=== PATIENT | female | born 1930 | race Two or more races ===

== ENCOUNTER 2016-12-27 23:04 | Inpatient (IN) | payer MEDICARE, MEDICAID ==
[~2016-12-27] VITALS: Ht 172.7 cm; Wt 94.8 kg
--- NOTE | 2016-12-27 23:10 | NUR ---
BB RA FROM HOME; NAUSEA/ VOMIT/ DIRRHEA X 1 DAY. PT AO MONTSERRAT[place] SPEAKING, SON AT BEDSIDE TO TRANSLATE. RR EVEN AND UNLABORED. NO SOB NOTED. NAD NOTED. NO NVD AT THIS TIME. PT GOWNED AND PLACED ON MONITOR.
[2016-12-27] MEDS ORDERED: ONDANSETRON HCL/PF 4 MG/2 ML VIAL IVP ONE (23:30)
[2016-12-27] MEDS ORDERED: ASPIRIN 81 MG TAB.CHEW PO ONE (23:30)
[2016-12-27] MEDS ORDERED: ONDANSETRON HCL/PF 4 MG/2 ML VIAL ONE (23:36)
[2016-12-27 23:41] LABS: BASOPHILS % (AUTO) 0.4 % (0.0-2.0); EOSINOPHILS # (AUTO) 0.1 /CMM (0.0-0.7); EOSINOPHILS % (AUTO) 0.7 % (0.0-6.0); HEMATOCRIT 39 % (33-45); HEMOGLOBIN 12.9 g/dL (11.5-14.8); LYMPHOCYTES # (AUTO) 0.9 /CMM (0.8-4.8); LYMPHOCYTES % (AUTO) 9.8 % (20.0-44.0); MEAN CORPUSCULAR HEMOGLOBIN 29 PG (26.0-33.0); MEAN CORPUSCULAR HGB CONC 33 g/dl (31.0-36.0); MEAN CORPUSCULAR VOLUME 89 fL (82-100); MONOCYTES # (AUTO) 0.3 /CMM (0.1-1.30); MONOCYTES % (AUTO) 3.1 % (2.0-12.0); NEUTROPHILS # (AUTO) 8.1 /CMM (1.8-8.9); PLATELET COUNT (AUTO) 328 /CMM (150-450); RDW COEFFICIENT OF VARIATION 14.1 (11.5-15.0); RED BLOOD CELL COUNT(AUTO) 4.44 MIL/uL (4.0-5.2); WHITE BLOOD COUNT (AUTO) 9.4 K/uL (4.3-11.0)
--- NOTE | 2016-12-27 23:43 | NUR ---
URINE COLLECTED. CALLED LAB FOR TRAY DRIER.
[2016-12-27] MEDS ORDERED: ASPIRIN 81 MG TAB.CHEW ONE (23:53)
[2016-12-27 23:54] LABS: CALCIUM, SERUM 9.5 mg/dL (8.5-10.1); CARBON DIOXIDE 30 mmol/L (21-32); CHLORIDE 94 mmol/L (98-107); CREATININE 0.7 mg/dL (0.6-1.3); GLUCOSE 237 mg/dL (74-106); POTASSIUM 4.2 mmol/L (3.5-5.1); SODIUM SERUM 131 mmol/L (136-145); UREA NITROGEN, BLOOD 14 mg/dL (7-18)
--- NOTE | 2016-12-27 23:56 | NUR ---
PT TO RADIOLOGY FOR CT
[2016-12-28] VITALS (7 sets, daily range): BP systolic 132–152; BP diastolic 76–86
[2016-12-28] LABS: ALANINE AMINOTRANSFERASE 20 U/L (12-78); ALBUMIN 4.1 g/dL (3.4-5.0); ALKALINE PHOSPHATASE 58 U/L (46-116); ASPARTATE AMINOTRANSFERASE 20 U/L (15-37); BILIRUBIN,DIRECT 0.1 mg/dL (0.0-0.2); BILIRUBIN,TOTAL 0.4 mg/dL (0.2-1.0); LIPASE 80 U/L (73-393); TOTAL PROTEIN, SERUM 8.1 g/dL (6.4-8.2)
[2016-12-28 00:02] LABS: TROPONIN I < 0.017 ng/mL (0.00-0.056)
[2016-12-28 00:03] LABS: INR 0.93 (0.87-1.13); PROTHROMBIN TIME 9.7 SECS (9.5-12.7)
--- NOTE | 2016-12-28 00:20 | NUR ---
PT RETURNED FROM CT.
[2016-12-28 01:02] LABS: APPEARANCE,URINE SL CLOUDY (CLEAR); BILIRUBIN,URINE NEGATIVE (NEGATIVE); BLOOD, URINE TRACE-INTA Ery/uL (NEGATIVE); COLOR,URINE YELLOW (YELLOW); KETONES,URINE TRACE (NEGATIVE); LEUKOCYTE ESTERASE ,URINE NEGATIVE (NEGATIVE); NITRITE, URINE NEGATIVE (NEGATIVE); PROTEIN,URINE NEGATIVE (NEGATIVE); UGLUCOSE 3+ mg/dL (NEGATIVE); UROBILINOGEN,URINE 0.2 EU/dL (0.2)
--- NOTE | 2016-12-28 01:08 | NUR ---
PT ASSIGNED TO 309-2
[2016-12-28 01:12] LABS: BACTERIA,URINE 4+ /HPF (None Seen); RBC,URINE 0-2 /HPF (0-2); SQUAMOUS EPITHELIAL CELL,UR Few /HPF (None Seen); WBC,URINE 0-2 /HPF (0-3)
[2016-12-28 01:13] LABS: YEAST,URINE Few /HPF (None Seen)
--- NOTE | 2016-12-28 01:20 | NUR ---
DR BARKLEY SPEAKING TO PT DESIGN MANAGER AIYANA REGARDING ADMISSION
--- NOTE | 2016-12-28 01:26 | NUR ---
REPORT GIVEN TO ALEXEY FAIR FOR TELE BED 309-1
[2016-12-28] MEDS ORDERED: PROP20TA7 PO (01:32)
[2016-12-28] MEDS ORDERED: METF10002 PO (01:32)
[2016-12-28] MEDS ORDERED: OLME40TA3 PO (01:32)
[2016-12-28] MEDS ORDERED: AMLO5TAB2 PO (01:32)
[2016-12-28] MEDS ORDERED: GLIM4TAB2 PO (01:32)
[2016-12-28] MEDS ORDERED: IBUP-1955 PO (01:32)
[2016-12-28] MEDS ORDERED: ASPI-991 PO (01:32)
[2016-12-28] MEDS ORDERED: HYDR-3026 PO (01:32)
[2016-12-28] MEDS ORDERED: TRAM50TA2 PO (01:32)
[2016-12-28] MEDS ORDERED: LORA-258 PO (01:32)
[2016-12-28] MEDS ORDERED: MECL-102 PO (01:32)
[2016-12-28] MEDS ORDERED: ZOLP5TAB7 PO (01:32)
--- NOTE | 2016-12-28 01:45 | NUR ---
ENGINEERING TECHNICAL WRITER ADMIN NOTES PT WAS BROUGHT UP BY ER VIA RAYSHAWN VILLAR AT BEDSIDE. PT IS A/O X3 MACANESE SPEAKING, SON TRANSLATES FOR US. PT WAS ADMITTED FOR CHEST PAIN. DENIES ANY PAIN AT THIS TIME. NKA BUT SON REQUESTED THAT WE FOLLOW UP WITH HIS SISTER TOMORROW TO BE SURE. PT IS SR 97 ON THE TELE MONITOR. NO SIGNS OF SOB OR DISTRESS. BREATHING EVENLY AND UNLABORED ON 2L NC. SKIN IS INTACT. SWELLING IN BILATERAL LOWER EXTREMITIES NOTED. AWAITING ORDERS. BED IS IN LOW AND LOCKED POSITION, CALL LIGHT WITHIN REACH. WILL CONTINUE TO MONITOR PT
--- NOTE | 2016-12-28 01:52 | NUR ---
PT TRANSFERED PER ACLS PROTOCOL TO [facility] BED 309-1
[2016-12-28] MEDS ORDERED: IV NS 0.9% 1,000 ML BAG IV ONE (02:00)
[2016-12-28] MEDS ORDERED: MECLIZINE HCL 25 MG TABLET PO PRN (03:00)
[2016-12-28] MEDS ORDERED: LORAZEPAM 0.5 MG TABLET PO PRN (03:00)
[2016-12-28] MEDS ORDERED: TRAMADOL HCL 50 MG TABLET PO PRN (03:00)
[2016-12-28] MEDS ORDERED: ONDANSETRON HCL/PF 4 MG/2 ML VIAL IVP PRN (03:30)
[2016-12-28] MEDS ORDERED: MAGNESIUM HYDROXIDE 30 ML UDC PO PRN (03:30)
[2016-12-28] MEDS ORDERED: ENOXAPARIN SODIUM 40 MG/0.4 ML DISP.SYRIN SQ SCH ×2 (03:30→21:00)
[2016-12-28] MEDS ORDERED: ZOLPIDEM TARTRATE 5 MG TABLET PO PRN (03:30)
[2016-12-28] MEDS ORDERED: DEXTROSE 50%-WATER 50 ML DISP.SYRIN IV PRN (03:30)
[2016-12-28] MEDS ORDERED: Z GUARD REMEDY 2 OZ OINT TP PRN (03:30)
[2016-12-28] MEDS ORDERED: ENOXAPARIN SODIUM 40 MG/0.4 ML DISP.SYRIN SQ ONE (03:55)
[2016-12-28] MEDS: BLOOD SUGAR DIAGNOSTIC 1 EACH STRIP IN SCH ×4 (06:27→22:35)
[2016-12-28 06:29] LABS: BASOPHILS % (AUTO) 0.3 % (0.0-2.0); EOSINOPHILS % (AUTO) 0.1 % (0.0-6.0); HEMATOCRIT 36 % (33-45); HEMOGLOBIN 12.2 g/dL (11.5-14.8); LYMPHOCYTES # (AUTO) 1.1 /CMM (0.8-4.8); LYMPHOCYTES % (AUTO) 10.6 % (20.0-44.0); MEAN CORPUSCULAR HEMOGLOBIN 30 PG (26.0-33.0); MEAN CORPUSCULAR HGB CONC 34 g/dl (31.0-36.0); MEAN CORPUSCULAR VOLUME 89 fL (82-100); MONOCYTES # (AUTO) 0.4 /CMM (0.1-1.30); MONOCYTES % (AUTO) 3.8 % (2.0-12.0); NEUTROPHILS % (AUTO) 85.2 % (43.0-81.0); PLATELET COUNT (AUTO) 308 /CMM (150-450); RDW COEFFICIENT OF VARIATION 13.5 (11.5-15.0); RED BLOOD CELL COUNT(AUTO) 4.06 MIL/uL (4.0-5.2); WHITE BLOOD COUNT (AUTO) 10.6 K/uL (4.3-11.0)
[2016-12-28] MEDS: INSULIN REGULAR, HUMAN 100 UNIT/ML 3 ML VIAL SQ PRN ×3 (06:31→22:36)
[2016-12-28 06:38] LABS: CALCIUM, SERUM 8.8 mg/dL (8.5-10.1); CARBON DIOXIDE 30 mmol/L (21-32); CHLORIDE 95 mmol/L (98-107); CREATININE 0.7 mg/dL (0.6-1.3); GLUCOSE 178 mg/dL (74-106); POTASSIUM 4.1 mmol/L (3.5-5.1); SODIUM SERUM 131 mmol/L (136-145); UREA NITROGEN, BLOOD 13 mg/dL (7-18)
[2016-12-28 06:42] LABS: TROPONIN I < 0.017 ng/mL (0.00-0.056)
--- NOTE | 2016-12-28 06:42 | NUR ---
PT BG 203, CONSULTED WITH CHARGE WHETHER OR NOT TO HOLD INSULIN DUE TO HOLDING OF THE MORNING TRAY. CHARGE TOLD ME TO GO AHEAD AND ADMINITER THE COVERAGE. 4 UNITS WAS GIVEN
--- NOTE | 2016-12-28 06:46 | NUR ---
TECHNOLOGY SUPPORT ANALYST CLOSING NOTES PT IS IN BED RESTING. NO SIGNS OF SOB OR DISTRESS. ON 2L NC BREATHING EVENLY AND UNLABORED. IV ACCESS IS INTACT AND PATENT. COOL TOWEL GIVEN TO PT FOR MILD HEADACHE. PENDING CARDIAC CONSULT. BED IS IN LOW AND LOCKED POSITION, CALL LIGHT WITHIN REACH. WILL ENDORSE TO DAY SHIFT
--- NOTE | 2016-12-28 07:20 | NUR ---
RN OPEN NOTES RECEIVED REPORT FROM WEAVER AXMINSTER NURSE. WILL CONTINUE TO MONITOR AND ASSESS PATIENT THROUGHOUT MY SHIFT
[2016-12-28] MEDS ORDERED: hydrOXYzine PAMOATE 25 MG CAPSULE PO PRN (08:30)
[2016-12-28] MEDS ORDERED: PROPRANOLOL HCL 10 MG TABLET PO SCH (09:00)
[2016-12-28] MEDS ORDERED: OLMESARTAN MEDOXOMIL 40 MG PO SCH (09:00)
[2016-12-28] MEDS: ASPIRIN EC 81 MG TABLET.DR PO SCH (09:16)
[2016-12-28] MEDS: METFORMIN 500 MG TABLET PO SCH ×2 (09:17→17:00)
[2016-12-28] MEDS: ACETAMINOPHEN 325 MG TABLET PO PRN ×2 (09:17→16:17)
[2016-12-28] MEDS: LOSARTAN POTASSIUM 50 MG TABLET PO SCH ×2 (09:18→22:28)
[2016-12-28] MEDS: GLIMEPIRIDE 4 MG TABLET PO SCH ×2 (09:18→17:00)
[2016-12-28] MEDS: CARVEDILOL 12.5 MG TABLET PO SCH ×2 (09:18→22:28)
[2016-12-28] MEDS: AMLODIPINE BESYLATE 5 MG TABLET PO SCH (09:19)
[2016-12-28 09:36] LABS: THYROID STIMULATING HORMONE 1.198 uIU/mL (0.358-3.74)
--- NOTE | 2016-12-28 10:45 | NUR ---
DR DURON AT BEDSIDE
--- NOTE | 2016-12-28 12:45 | NUR ---
DR MOORE AT BEDSIDE
--- NOTE | 2016-12-28 13:50 | NUR ---
CTA STAT ORDERED TO R/U BLEEDING / ANEURYSM DUE TO STRONG HEADACHE
[2016-12-28] MEDS ORDERED: MORPHINE SULFATE INJ 2 MG/ML DISP.SYRIN IV ONE (14:00)
--- NOTE | 2016-12-28 14:00 | NUR ---
HOLD METFORMIN AND AMARYL FOR 48 HOURS. PATIENT IS POST STATUS CVA WITH CONTRAST. RESUME METFORMIN AND AMARYL ON 12/30/16 AT 14:00
[2016-12-28] MEDS ORDERED: IOHEXOL-350 100 ML VIAL IV ONE (14:13)
[2016-12-28] MEDS ORDERED: CT SWABBABLE VALVE TRANS SET 1 EA INFUS.SET MC ONE (14:13)
[2016-12-28] MEDS ORDERED: IV NS 0.9% 250 ML IV ONE (14:14)
[2016-12-28] MEDS: IBUPROFEN 600 MG TABLET PO PRN ×2 (14:53→22:28)
--- NOTE | 2016-12-28 19:07 | NUR ---
RN CLOSING NOTES PATIENT IS ALERT AND ORIENTED TO NAME, PLACE AND TIME. WELSH SPEAKER. NO SIGNS AND SYMPTOMS OF DISTRESS. HEADACHE WAS MANAGED BETWEEN TYLENOL. IV SITE IS INTACT AND PATENT. BED IN LOW POSITION, LOCKED AND TWO SIDE RAILS ARE UP. CALL LIGHT WITHIN REACH. ALL NURSING CARE PROVIDED.WILL ENDORSE TO CONSULTING ACTUARY NURSE
--- NOTE | 2016-12-28 19:25 | NUR ---
CALLED MITA DAUGHTER, GARRETT AT [phone] FOR UPDATE
--- NOTE | 2016-12-28 19:30 | NUR ---
MS/RN NOTES RECEIVED PT. LYING IN BED. AWAKE, ALERT AND ORIENTED X3. PORTUGUESE SPEAKING. BREATHING EVEN AND UNLABORED ON 2LPM O2 VIA NC. NO SOB OR RESPIRATORY DISTRESS NOTED AT THIS TIME. PT. COMPLAINS OF HEADACHE BUT STATES IT HAS REALLY IMPROVED SINCE RECEIVING PAIN MEDICATION EARLIER. PT. WITH RIGHT AC 20 GAUGE IV SALINE LOCK PRESENT, PATENT AND INTACT. PT. WITH FAMILY MEMBERS PRESENT AT BEDSIDE. BED LOCKED AND IN LOWEST POSITION, SIDE RAILS UP X2, BED ALARM ON, WILL CONTINUE TO MONITOR.
--- NOTE | 2016-12-29 06:10 | NUR ---
MS/RN NOTES PT. IS LYING IN BED RESTING. BREATHING EVEN AND UNLABORED ON 2LPM O2 VIA NC. NO SOB OR RESPIRATORY DISTRESS OR PAIN NOTED AT THIS TIME. PT. WITH RIGHT AC 20 GAUGE IV SALINE LOCK PRESENT, PATENT AND INTACT. ALL PT. NEEDS MET. ALL DUE MEDICATIONS GIVEN. BED LOCKED AND IN LOWEST POSITION, SIDE RAILS UP X2, BED ALARM ON, WILL ENDORSE TO DAYSHIFT NURSE FOR CONTINUITY OF CARE.
[2016-12-29 06:55] LABS: BASOPHILS % (AUTO) 0.2 % (0.0-2.0); EOSINOPHILS # (AUTO) 0.1 /CMM (0.0-0.7); HEMATOCRIT 37 % (33-45); HEMOGLOBIN 12.2 g/dL (11.5-14.8); LYMPHOCYTES % (AUTO) 12.5 % (20.0-44.0); MEAN CORPUSCULAR HEMOGLOBIN 30 PG (26.0-33.0); MEAN CORPUSCULAR HGB CONC 34 g/dl (31.0-36.0); MEAN CORPUSCULAR VOLUME 89 fL (82-100); MONOCYTES # (AUTO) 0.5 /CMM (0.1-1.30); NEUTROPHILS # (AUTO) 6.7 /CMM (1.8-8.9); NEUTROPHILS % (AUTO) 80.3 % (43.0-81.0); PLATELET COUNT (AUTO) 251 /CMM (150-450); RDW COEFFICIENT OF VARIATION 13.8 (11.5-15.0); RED BLOOD CELL COUNT(AUTO) 4.11 MIL/uL (4.0-5.2); WHITE BLOOD COUNT (AUTO) 8.4 K/uL (4.3-11.0)
[2016-12-29] MEDS: BLOOD SUGAR DIAGNOSTIC 1 EACH STRIP IN SCH ×2 (06:56→12:03)
[2016-12-29] MEDS: INSULIN REGULAR, HUMAN 100 UNIT/ML 3 ML VIAL SQ PRN ×2 (06:58→12:08)
[2016-12-29 07:01] LABS: CALCIUM, SERUM 8.9 mg/dL (8.5-10.1); CARBON DIOXIDE 29 mmol/L (21-32); CHLORIDE 93 mmol/L (98-107); CREATININE 0.6 mg/dL (0.6-1.3); GLUCOSE 186 mg/dL (74-106); MAGNESIUM 1.3 mg/dL (1.8-2.4); PHOSPHORUS 2.9 mg/dL (2.5-4.9); POTASSIUM 3.7 mmol/L (3.5-5.1); SODIUM SERUM 128 mmol/L (136-145); UREA NITROGEN, BLOOD 17 mg/dL (7-18)
--- NOTE | 2016-12-29 07:41 | NUR ---
RN OPEN NOTES RECEIVED REPORT FROM NOTEREADER NURSE. WILL CONTINUE TO MONITOR AND ASSESS PATIENT DURING MY SHIFT
[2016-12-29 08:00] VITALS: BP 163/96
[2016-12-29] MEDS: IBUPROFEN 600 MG TABLET PO PRN (08:03)
[2016-12-29] MEDS: METFORMIN 500 MG TABLET PO SCH (08:04)
[2016-12-29] MEDS: GLIMEPIRIDE 4 MG TABLET PO SCH (08:04)
[2016-12-29] MEDS: ASPIRIN EC 81 MG TABLET.DR PO SCH (08:04)
[2016-12-29] MEDS: LOSARTAN POTASSIUM 50 MG TABLET PO SCH (08:05)
[2016-12-29] MEDS: CARVEDILOL 12.5 MG TABLET PO SCH (08:05)
[2016-12-29] MEDS: AMLODIPINE BESYLATE 5 MG TABLET PO SCH (08:05)
[2016-12-29 08:08] LABS: CHOLESTEROL 192 mg/dL (<200); HDL CHOLESTEROL 66 mg/dL (40-60); LDL 117 mg/dL (0-99); TRIGLYCERIDES 98 mg/dL (30-150)
--- NOTE | 2016-12-29 08:45 | NUR ---
DR DURON MADE AWARE OF MAGNESIUM LEVEL OF 1.3
[2016-12-29] MEDS ORDERED: ENOXAPARIN SODIUM 40 MG/0.4 ML DISP.SYRIN SQ SCH (09:00)
[2016-12-29] MEDS: Magnesium 1GM/D5W 100ML PREMIX 100 ML IV SCH ×4 (09:16→13:25)
--- NOTE | 2016-12-29 09:38 | NUR ---
SPOKE WITH THE GRANDDAUGHTER, GARRETT, TO OBTAIN CONSENT FOR LP. GARRETT WILL TALK TO HER MOM AND UNCLE (THE PATIENT'S CHILDREN) AND WILL CALL ME BACK
[2016-12-29] MEDS ORDERED: VALSARTAN 80 MG TABLET PO SCH (10:00)
[2016-12-29 10:20] VITALS: BP 142/85
--- NOTE | 2016-12-29 12:26 | NUR ---
CALLED GRANDDAUGHTER AGAIN FOR AN ATTEMPT TO GET A VERBAL CONSENT MARY IS ON HER WAY TO THE HOSPITAL AND WILL TALK TO ME WHILE SHE IS HERE REGARDING THE LP
--- NOTE | 2016-12-29 12:42 | NUR ---
FAMILY AT BEDSIDE. PATIENT AND FAMILY ARE REFUSING LP AND WOULD LIKE TO TAKE PATIENT HOME. DR DURON NOTIFIED
[2016-12-29] MEDS ORDERED: CARV12.52 PO (13:06)
[2016-12-29] MEDS ORDERED: VALS80TA2 PO (13:06)
--- NOTE | 2016-12-29 13:30 | NUR ---
DR MOORE AT BEDSIDE
--- NOTE | 2016-12-29 14:28 | NUR ---
CLAM BED LABORER NOTES PATIENT DISCHARGE ORDER RECEIVED AND CARRIED OUT. NO SIGNS AND SYMPTOMS OD DISTRESS OR SOB. DENIED PAIN. 0/10 HEADACHE. PATIENT IS ALERT AND ORIENTED TO NAME, PLACE, AND TIME. [place]ORE[place] SPEAKER, FAMILY AT BEDSIDE. ALL DISCHARGE INSTRUCTION EXPLAINED TO PATIENT AND FAMILY. BOTH VERBALIZED UNDERSTANDING. NO NEW CONCERNS IDENTIFIED. NEW PRESCRIPTION SENT TO [facility] AT [place] [phone]. I (EULA KATZ) CALLED PHARMACY TO VERIFY PRESCRIPTION. PATIENT ADVISED TO HOLD METFORMIN AND GLIMEPIRIDE DUE TO CT WITH CONTRAST AND TO RESUME ON 12/30 AFTER 2PM. PATIENT DOESN'T HAVE ANY LEATHER PATCHER AND WOULD LIKE TO SET UP AN APPOINTMENT WITH THEIR PCP ON THEIR OWN. PRIMARY CARE PHYSICIAN IS DR FAITH MOLINA IN [place]. PATIENT REFUSED FLU VACCINE, RISKS AND BENEFITS EXPLAINED TO PATIENT THREE TIMES. ALL PERSONAL BELONGING WITH PATIENT AT TIME OF DISCHARGE. BOTH DISCHARGE INSTRUCTIONS AND BELONGING LIST SIGNED BY A FAMILY MEMBERS AND PLACED IN THE CHART. SKIN IS INTACT. IV SITE REMOVED. ID BAND REMOVED. PATIENT ESCORTED DOWN TO [facility] WITH A FLASK CARRIER VIA A WHEELCHAIR. PATIENT TRANSPORTED HOME VIA A PRIVATE CAR AND A FAMILY MEMBER.
[2016-12-29] MEDS ORDERED: CARVEDILOL 12.5 MG TABLET PO SCH (21:00)
== END 2016-12-29 14:30 | disposition home or self-care (01) | DRG 206 ==
LOC: ER 23:13 → EDBD 23:13 → TELE 12-28 01:42 → MED 12-29 10:46
PROVIDERS: ADMIT Nurse Practitioner Acute Care; ATTEND Nurse Practitioner Acute Care
DX: M94.0 Chondrocostal junction syndrome [Tietze] (principal); E11.9 Type 2 diabetes mellitus without complications; E66.01 Morbid (severe) obesity due to excess calories; E83.42 Hypomagnesemia; I10 Essential (primary) hypertension; G43.909 Migraine, unspecified, not intractable, without status migrainosus; G47.33 Obstructive sleep apnea (adult) (pediatric); H81.10 Benign paroxysmal vertigo, unspecified ear; H57.02 Anisocoria; K44.9 Diaphragmatic hernia without obstruction or gangrene; Z68.31 Body mass index [BMI] 31.0-31.9, adult
CPT/HCPCS: 36415; 70496-TC; 71010-TC; 80048-TC; 80061-TC; 80076-TC; 81000-TC; 82962-TC; 83690-TC; 83735-TC; 84100-TC; 84439-TC; 84443-TC; 84484-TC; 85025-TC; 85730-TC; 87081-TC; 87086-TC; 93307-TC; 97116-TC; 97530-TC; A4606; J1650; J1815; J2270; J2405; J3475; J7040; J7050; Q9967; Z7610